=== PATIENT | female | born 1960 | race Caucasian/White ===

== ENCOUNTER 2019-05-27 11:16 | Emergency (ER) | payer MEDICAID ==
[~2019-05-27] VITALS: Ht 162.6 cm; Wt 76.4 kg
[2019-05-27 11:20] VITALS: BP 169/81
--- NOTE | 2019-05-27 11:36 | NUR ---
PT BIB [facility] WITH C/O BL KNEE PAIN X2 DAYS. PT REPORTS GRADUAL ONSET OF SHARP PAIN AT 7/10 THAT RADIATES AROUND ENTIRE KNEE AND INCREASES WHEN TRYING TO STAND UP. PT DENIES TRAUMA OR INJURY. PER PT, PAIN IS THROBBING, DIFFICLUTY IN WALKING AND BENDING KNEES. SLIGHT SWELLING ON BILATERAL KNEE. NO REDNESS OR TENDERNESS NOTED. PT TAKING IBUPROFEN AND TYELENOL AT HOME, NO RELIEF FROM PAIN. ER MD TO SEE THE PT. WILL CONTINUE TO MONITOR PT. MEDHX:HTN RX:LISINOPIRL, AMLODIPINE
--- NOTE | 2019-05-27 11:36 | NUR ---
PT WENT TO X-RAY W/C.
--- NOTE | 2019-05-27 11:45 | NUR ---
PT BACK FROM X-RAY.
--- NOTE | 2019-05-27 12:42 | NUR ---
placed gaviota wrap on patient's left and right knees. sized crutches to patient
[2019-05-27 13:03] VITALS: BP 169/81
--- NOTE | 2019-05-27 13:03 | NUR ---
Patient discharged with v/s stable. Written and verbal after care instructions given and explained. Patient alert, oriented and verbalized understanding of instructions. Ambulatory with steady gait. All questions addressed prior to discharge. ID band removed. Patient advised to follow up with PMD. Rx of medrol dosepak 4 mg, motrin 800mg given. Patient educated on indication of medication including possible reaction and side effects. Opportunity to ask questions provided and answered.
== END 2019-05-27 13:03 | disposition home or self-care (01) ==
LOC: MED 11:16
DX: S83.8X2A Sprain of other specified parts of left knee, initial encounter (principal); S83.8X1A Sprain of other specified parts of right knee, initial encounter; I10 Essential (primary) hypertension; Z88.5 Allergy status to narcotic agent; X58.XXXA Exposure to other specified factors, initial encounter; Y93.89 Activity, other specified; Y92.89 Other specified places as the place of occurrence of the external cause; Y99.8 Other external cause status
CPT/HCPCS: 73562; 99283

== ENCOUNTER 2020-08-06 10:10 | Emergency (ER) | payer OTHER, SELFPAY ==
[~2020-08-06] VITALS: Ht 160 cm; Wt 72.6 kg
[2020-08-06 10:32] VITALS: BP 156/95
--- NOTE | 2020-08-06 10:40 | NUR ---
Cough, body aches. COVID + close contact yesterday.
--- NOTE | 2020-08-06 11:04 | NUR ---
Dr. Groves is evaluating the patient in the OF tent.
--- NOTE | 2020-08-06 11:07 | NUR ---
COVID SWAB SENT TO LAB.
[2020-08-06 11:34] VITALS: BP 156/95
--- NOTE | 2020-08-06 11:35 | NUR ---
Patient discharged with v/s stable. Written and verbal after care instructions given and explained. Patient verbalized understanding. Ambulatory with steady gait. All questions addressed prior to discharge. Advised to follow up with PMD.
--- NOTE | 2020-08-07 20:17 | NUR ---
Positive COVID-19 test results were received from lab. A copy of the test results were given to Infection
== END 2020-08-06 11:32 | disposition home or self-care (01) ==
LOC: MED 10:10
DX: R05 Cough (principal); Z20.828 Contact with and (suspected) exposure to other viral communicable diseases; M79.10 Myalgia, unspecified site; I10 Essential (primary) hypertension; Z88.5 Allergy status to narcotic agent
CPT/HCPCS: 99283; U0003

== ENCOUNTER 2020-12-09 15:33 | Emergency (ER) | payer OTHER, SELFPAY ==
[~2020-12-09] VITALS: Ht 157.5 cm; Wt 67.1 kg
[2020-12-09 15:37] VITALS: BP 117/64
--- NOTE | 2020-12-09 15:45 | NUR ---
Patient ambulated to bed 7. RN evaluating the patient at bedside.
--- NOTE | 2020-12-09 15:52 | NUR ---
60 Y/O FEMALE BIB SELF C/O HEADACHE X 3 DAYS. PT STATES CONTINUOUS THROBBING PAIN 10/10 THAT RADIATES TO BACK OF NECK AND BILAT SHOULDERS. PT STATES NAUSEA AND DIZZINESS, DENIES VOMITING. PT STATES BLURRY VISION; PERRLA. INCREASED STRESSORS OF RECENT. PT STATES LAST MEAL WAS CEREAL "IN THE MORNING" AND VERBALIZED BEIGN AWAKE SINCE 0400 TODAY. AO4, BREATHING EVEN AND UNLABORED, SKIN WARM AND DRY. BED IN LOWEST POSITION, LCOKED, X1 SIDERAIL UP. ROOM LIGHTS DIMMED, PT CONNECTED TO MONITOR. PMH - HTN ALLERGY - MORPHINE
--- NOTE | 2020-12-09 16:02 | NUR ---
PT IN ROOM CRYING, IN DISTRESS. STATES "HEAD IS ABOUT TO EXPLODE". ERMD MADE AWARE.
--- NOTE | 2020-12-09 16:07 | NUR ---
ERMD AT BEDSIDE
[2020-12-09] MEDS ORDERED: METOCLOPRAMIDE 10 MG/2 ML INJ VIAL IVP ONE (16:15)
[2020-12-09] MEDS ORDERED: NACL 0.9% 1,000 ML IV ONE ×2 (16:15→18:25)
[2020-12-09] MEDS ORDERED: diphenhydrAMINE 50 MG/ML VIAL IVP ONE (16:15)
--- NOTE | 2020-12-09 16:23 | NUR ---
PT TAKEN TO CT VIA WHEELCHAIR
[2020-12-09] MEDS ORDERED: IBUP-2213 PO (19:02)
[2020-12-09 19:25] VITALS: BP 117/64
--- NOTE | 2020-12-09 19:26 | NUR ---
Patient discharged with v/s stable. Written and verbal after care instructions ABOUT TENSION HEADACHE AND DEHYDRATION given and explained. Patient alert, oriented and verbalized understanding of instructions. Ambulatory with steady gait. All questions addressed prior to discharge. ID band removed. Patient advised to follow up with PMD. Rx of IBUPROFN given. Patient educated on indication of medication including possible reaction and side effects. Opportunity to ask questions provided and answered.
--- NOTE | 2020-12-11 10:08 | NUR ---
LATE ENTRY -- NORMAL SALINE INFUSION COMPLETED AT 1733 12/09/20
== END 2020-12-09 19:24 | disposition home or self-care (01) ==
LOC: MED 15:33
DX: R51.9 Headache, unspecified (principal); I10 Essential (primary) hypertension; Z88.5 Allergy status to narcotic agent
CPT/HCPCS: 70450; 96361; 96374; 96375; 99284; J1200; J2765; J7030

== ENCOUNTER 2021-03-23 15:58 | Emergency (ER) | payer OTHER ==
[~2021-03-23] VITALS: Ht 160 cm; Wt 68.0 kg
[~2021-03-23 15:58] MED LIST: IBUP-2213 PO
[2021-03-23 16:10] VITALS: BP 133/80
--- NOTE | 2021-03-23 16:19 | NUR ---
[facility]: RIGHT EYE 20/70, LEFT EYE 20/70, BOTH EYES 20/70
[2021-03-23] MEDS ORDERED: KETOROLAC 15 MG/ML VIAL IVP ONE (16:30)
[2021-03-23] MEDS ORDERED: NACL 0.9% 1,000 ML IV ONE (16:30)
--- NOTE | 2021-03-23 16:30 | NUR ---
60 YEAR OLD FEMALE COMPLAINS OF DIZZINESS, HEADACHE, AND BLURRY VISION X 4 DAYS. PT STATES SHE HAS HAD SYMPTOMS EVER SINCE FALLING ONTO HEAD, AND HAD 5 POORNIMA PLACED AT HOSPITAL. PT AOX4, BREATHING EVEN AND UNLABORED, SKIN WARM AND DRY. BED IN LOWEST POSITION, LOCKED, BED RAIL UPX1. PMH - HTN ALLERGIES - MORPHINE
[2021-03-23 16:42] LABS: BASOPHILS # (AUTO) 0.1 K/uL (0.00-0.22); BASOPHILS % (AUTO) 1.2 % (0.0-2.0); EOSINOPHILS % (AUTO) 0.6 % (0.0-4.0); HEMOGLOBIN 13.8 g/dL (12.0-16.0); LYMPHOCYTES # (AUTO) 2.2 K/uL (2.5-16.5); LYMPHOCYTES % (AUTO) 31.5 % (20.5-51.1); MEAN CORPUSCULAR HEMOGLOBIN 32 pg (27-31); MEAN CORPUSCULAR HGB CONC 34 g/dL (33-37); MEAN CORPUSCULAR VOLUME 94.2 fL (80-94); MONOCYTES # (AUTO) 0.8 K/uL (0.8-1.0); MONOCYTES % (AUTO) 11.2 % (1.7-9.3); NEUTROPHILS # (AUTO) 3.9 K/uL (1.8-7.7); NEUTROPHILS % (AUTO) 55.5 % (42.2-75.2); PLATELET COUNT (AUTO) 119 K/uL (140-450); RED BLOOD CELL COUNT(AUTO) 4.36 MIL/uL (4.20-5.40); RED CELL DISTRIBUTION WIDTH 13.2 % (11.6-13.7)
[2021-03-23 16:56] LABS: ALBUMIN 3.9 g/dL (3.4-5.0); ANION GAP 12.2 (8-16); CARBON DIOXIDE 27.2 mmol/L (21-32); CREATININE 0.6 mg/dL (0.6-1.3); POTASSIUM 3.4 mmol/L (3.5-5.1); TOTAL BILIRUBIN 0.3 mg/dL (0.0-1.0)
[2021-03-23] MEDS ORDERED: MECL-303 PO (17:24)
[2021-03-23] MEDS ORDERED: NAPR-54 PO (17:24)
--- NOTE | 2021-03-23 17:30 | NUR ---
RUBI UDDLEY AT BEDSIDE REEVALUATING PATIENT
[2021-03-23 17:39] VITALS: BP 128/91
--- NOTE | 2021-03-23 17:40 | NUR ---
Patient discharged with v/s stable. Written and verbal after care instructions about head injury given and explained. Patient alert, oriented and verbalized understanding of instructions. Ambulatory with steady gait. All questions addressed prior to discharge. ID band removed. Patient advised to follow up with PMD. Rx of antivert, naprosyn given. Patient educated on indication of medication including possible reaction and side effects. Opportunity to ask questions provided and answered.
== END 2021-03-23 17:40 | disposition home or self-care (01) ==
LOC: MED 15:58
DX: S00.93XA Contusion of unspecified part of head, initial encounter (principal); R42 Dizziness and giddiness; I10 Essential (primary) hypertension; Z88.5 Allergy status to narcotic agent; Z79.899 Other long term (current) drug therapy; Z98.890 Other specified postprocedural states; W19.XXXA Unspecified fall, initial encounter; Y93.89 Activity, other specified; Y92.89 Other specified places as the place of occurrence of the external cause; Y99.8 Other external cause status
CPT/HCPCS: 36415; 70450; 80053; 81002; 81025; 85025; 96361; 96374; 99284; J1885; J7030

== ENCOUNTER 2021-03-29 17:32 | Emergency (ER) | payer OTHER ==
[~2021-03-29] VITALS: Ht 160 cm; Wt 68.0 kg
[~2021-03-29 17:32] MED LIST changes: +MECL-303 PO; +NAPR-54 PO
[2021-03-29 17:41] VITALS: BP 107/62
--- NOTE | 2021-03-29 17:46 | NUR ---
PT TO AWAIT IN LOBBY
--- NOTE | 2021-03-29 18:17 | NUR ---
Pt ambulaed to ER bed 1 with a steady gait.
--- NOTE | 2021-03-29 18:22 | NUR ---
60 Y/O FEMALE HERE FOR POORNIMA REMOVAL TO BACK OF HEAD S/P FALL [id number] AGO. PT STATES POORNIMA PLACED ON 03/19/21 AT [facility]. PT SEEN HERE X6DAYS AGO FOR HEADACE, DIZZINESS, N/V, HAD CT AND MEDS PRESCRIBED FOR PAIN. PT STATES TODAY PAIN 7/10 DESCRIBES ACHING NON-RADIATING. PMH: HTN, HERNIA SURGERY ALLERGIES: MORPHINE
--- NOTE | 2021-03-29 18:34 | NUR ---
RUBI Darby at pt bedside for procedure.
[2021-03-29 19:11] VITALS: BP 107/62
== END 2021-03-29 19:11 | disposition home or self-care (01) ==
LOC: MED 17:32
DX: S01.81XD Laceration without foreign body of other part of head, subsequent encounter (principal); I10 Essential (primary) hypertension; Z88.5 Allergy status to narcotic agent; Z79.899 Other long term (current) drug therapy; Z48.00 Encounter for change or removal of nonsurgical wound dressing; X58.XXXD Exposure to other specified factors, subsequent encounter
CPT/HCPCS: 99281; 99282; 99284

== ENCOUNTER 2021-05-15 16:55 | Emergency (ER) | payer OTHER ==
[~2021-05-15] VITALS: Ht 160 cm; Wt 60.3 kg
[2021-05-15 17:02] VITALS: BP 143/88
[2021-05-15] MEDS ORDERED: KETOROLAC 30 MG/ML VIAL IM ONE (17:20)
[2021-05-15] MEDS ORDERED: NYST100022 PO (17:31)
[2021-05-15] MEDS ORDERED: NAPR-54 PO (17:31)
--- NOTE | 2021-05-15 17:37 | NUR ---
Patient discharged with v/s stable. Written and verbal after care instructions given and explained. Patient alert, oriented and verbalized understanding of instructions. Ambulatory with steady gait. All questions addressed prior to discharge. ID band removed. Patient advised to follow up with PMD. Rx of Nystatin and Naproxen given. Patient educated on indication of medication including possible reaction and side effects. Opportunity to ask questions provided and answered.
== END 2021-05-15 17:37 | disposition home or self-care (01) ==
LOC: MED 16:55
DX: B37.0 Candidal stomatitis (principal); I10 Essential (primary) hypertension; Z88.5 Allergy status to narcotic agent; Z79.899 Other long term (current) drug therapy
CPT/HCPCS: 96372; 99283; J1885